=== PATIENT | male | born 1995 | race Native Hawaiian/Other Pacific Islander ===

== ENCOUNTER 2024-07-26 05:41 | Emergency (ER) | payer OTHER | END 2024-07-26 07:55 | disposition home or self-care (01) | LOC: FB.ED 05:41 | DX: S67.02XA Crushing injury of left thumb, initial encounter (principal); F17.200 Nicotine dependence, unspecified, uncomplicated; X50.0XXA Overexertion from strenuous movement or load, initial encounter; Y93.89 Activity, other specified; Y99.0 Civilian activity done for income or pay | CPT/HCPCS: 29125; 36415; 73140-FA; 99000; 99283; 99283-25; G0480 ==